=== PATIENT | female | born 1940 | race Caucasian/White ===

== ENCOUNTER 2018-08-14 08:57 | Day surgery (SDC) | payer OTHER ==
[~2018-08-14 08:57] MED LIST: CYCLOPENTOLATE HCL 1% OPHTH SOLN 2 ML BOTTLE OS SCH; KETOROLAC TROMETHAMINE 0.5% EYE DROP 1 DROP DROPS OS SCH; OFLOXACIN 0.3% OPHTHALMIC SOLUTION 5 ML BOTTLE OS SCH; PHENYLEPHRINE 2.5% OPHTH SOLN 15 ML BOTTLE OS SCH; TROPICAMIDE 1% OPHTH SOLN 15 ML BOTTLE OS SCH
[2018-08-14] MEDS ORDERED: POVIDONE-IODINE 5% OPHTHALMIC PREP 30 ML SOLUTION ONE (09:05)
[2018-08-14] MEDS ORDERED: TETRACAINE 0.5% OPHTH SOLN 2 ML BOTTLE ONE (09:05)
[2018-08-14] MEDS ORDERED: EPI-SHUGARCAINE (EPINEPHRINE 0.025% & LIDOCAINE-PF 0.75%) 4ML ONE (09:05)
[2018-08-14] MEDS ORDERED: ACETYLCHOLINE 1:100 INTRA-OCUL 20 MG/2 ML KIT ONE (09:06)
[2018-08-14] MEDS: TROPICAMIDE 1% OPHTH SOLN 15 ML BOTTLE ONE ×5 (09:50→10:10)
[2018-08-14] MEDS: PHENYLEPHRINE 2.5% OPHTH SOLN 15 ML BOTTLE ONE ×5 (09:50→10:10)
[2018-08-14] MEDS: CYCLOPENTOLATE HCL 1% OPHTH SOLN 2 ML BOTTLE ONE ×5 (09:50→10:10)
[2018-08-14] MEDS: KETOROLAC TROMETHAMINE 0.5% EYE DROP 1 DROP DROPS ONE ×5 (09:50→10:10)
[2018-08-14] MEDS: OFLOXACIN 0.3% OPHTHALMIC SOLUTION 5 ML BOTTLE ONE ×5 (09:50→10:10)
[2018-08-14 10:01] VITALS: BMI 13.6
[2018-08-14] MEDS ORDERED: MIDAZOLAM HCL 2 MG/2 ML SINGLE DOSE VIAL ONE (10:40)
[2018-08-14] MEDS ORDERED: ACETAMINOPHEN 325 MG TABLET (FP) PO PRN (11:32)
[2018-08-14 12:16] VITALS: BP 135/74; PULSE 74; TEMP 98
--- NOTE | 2018-08-14 14:01 | OP ---
DATE OF OPERATION: 08/14/2018 PREOPERATIVE DIAGNOSIS: Cataract, left eye. POSTOPERATIVE DIAGNOSIS: Cataract, left eye. PROCEDURE: Cataract extraction via phacoemulsification with insertion of posterior chamber lens implant, left eye. SURGEON: Sherman Land MD FACE MAN: La Bonner MD ANESTHESIA: Topical with sedation. ESTIMATED BLOOD LOSS: Less than 1 mL. COMPLICATIONS: None. SPECIMENS: None. DESCRIPTION OF PROCEDURE: The patient was identified in the holding area. After all the risks, benefits, and alternatives were explained to the patient, informed consent was obtained. The left eye was marked with a marking pen. The patient then entered the operating room on an eye stretcher. After a formal time-out was performed, topical tetracaine eye drops were instilled onto the left eye. The left eye was then prepped and draped in the usual sterile fashion. An eyelid speculum was placed beneath the eyelids of the left eye. An inferotemporal paracentesis incision was created using a 15-degree blade. Topical preservative-free epinephrine and preservative-free lidocaine were injected into the anterior chamber. Viscoelastic was then injected into the anterior chamber. A 2.4-mm keratome blade was then used to make a superotemporal incision. A 360-degree continuous curvilinear capsulorrhexis was then created using bent cystotome and Utrata forceps. Hydrodissection was performed using balanced saline solution on a cannula. Phacoemulsification was introduced to disassemble and remove the nucleus in its entirety. Irrigation/aspiration was then used to remove any remaining cortical material from the eye. The capsular bag was reformed using viscoelastic. An Vj model SN60WF with a power of 25.5 diopters, serial number [id number], was inspected and found to be defect-free and injected into the capsular bag. Irrigation/aspiration was then used to remove any remaining viscoelastic from the eye. The anterior chamber was reformed using balanced saline solution. Intracameral injection of Miochol was then administered, and the pupil came down and was round. All wounds were hydrated with balanced saline solution, noted to be watertight. There was a red reflex present. The anterior chamber was deep. The lens was perfectly centered in the capsular bag, and the eye had adequate pressure. Topical antibiotic eye drops and ointment were then administered to the left eye. The eyelid speculum was removed from the left eye. The left eye was shielded. The patient tolerated the procedure well and left the operating room in stable condition to follow up in the eye clinic tomorrow morning at 10:00. SHERMAN LAND M.D. PANKAJ/[id number]
== END 2018-08-14 12:20 | disposition home or self-care (01) ==
LOC: FASU 08:57
PROVIDERS: ATTEND Ophthalmology
PROC: 08RK3JZ Replacement of Left Lens with Synthetic Substitute, Percutaneous Approach (ICD-10-PCS; principal; 2018-08-14 10:52)
DX: H26.9 Unspecified cataract (principal)

== ENCOUNTER 2023-01-13 02:10 | Inpatient (IN) | payer OTHER ==
[2023-01-13 04:36] LABS: CALCIUM 8.6 mg/dL (8.5-10.1)
[2023-01-13 04:39] LABS: CREATININE 1.5 mg/dL (0.55-1.3)
[2023-01-13 04:41] LABS: BILIRUBIN,TOTAL 0.3 mg/dL (0.2-1)
[2023-01-13 05:40] LABS: INR 1.27 (0.83-1.09); PROTHROMBIN TIME (PATIENT) 14.7 SEC (9.7-13.0)
[2023-01-13 05:42] LABS: ACTIVATED PTT 30.7 SECONDS (25.2-36.5)
[2023-01-13 05:45] LABS: HEMATOCRIT 18.9 % (32.4-45.2); MCH 31.5 pg (25.7-33.7); MCHC 32.4 g/dl (32.0-36.0); MEAN CELL VOLUME 97.4 fl (80-96); MEAN PLT VOLUME 7.4 fl (7.5-11.1); PLATELET COUNT 318 10^3/uL (134-434); RBC 1.95 M/mm3 (3.60-5.2); RDW 20.6 % (11.6-15.6); WHITE BLOOD COUNT 25.1 K/mm3 (4.0-10.0)
[2023-01-13 05:54] LABS: HEMOGLOBIN 6.1 GM/dL (10.7-15.3)
[2023-01-13] MEDS ORDERED: ONDANSETRON 4 MG/2 ML VIAL IVPUSH ONE (06:50)
[2023-01-13] MEDS ORDERED: ONDANSETRON 4 MG/2 ML VIAL ONE (07:32)
[2023-01-13 07:38] LABS: ANISOCYTOSIS 2+; MACROCYTOSIS 0; OVALOCYTE 2+
[2023-01-13] MEDS ORDERED: SODIUM CHLORIDE 500 ML IV STA (09:26)
[2023-01-13] MEDS ORDERED: ALBUTEROL SO4 2.5/IPRATROPIUM 0.5 INH SOL 3 ML VIAL.NEB. NEB PRN (09:35)
[2023-01-13] MEDS ORDERED: ACETAMINOPHEN 650 MG/20.3 ML ORAL SOLUTION (CUPS) GT PRN (09:35)
[2023-01-13 09:38] LABS: POTASSIUM 3.9 mmol/L (3.5-5.1)
[2023-01-13 09:40] LABS: CALCIUM 9.2 mg/dL (8.5-10.1)
[2023-01-13 09:41] LABS: BLOOD UREA NITROGEN 61.4 mg/dL (7-18)
[2023-01-13 09:43] LABS: CREATININE 1.4 mg/dL (0.55-1.3)
[2023-01-13] MEDS ORDERED: COLLAGENASE CLOSTRIDIUM HIST. 30 GRAMS TUBE TP SCH (10:00)
[2023-01-13] MEDS ORDERED: POLYETHYLENE GLYCOL (HEALTHYLAX) 3350 17 GM PACKET PO SCH (10:00)
[2023-01-13] MEDS ORDERED: oxyCODONE HCL 5 MG TABLET PO PRN (10:29)
[2023-01-13] MEDS ORDERED: PIPERACILLIN/TAZOB 3.375 GM 3.375 GM in DEXTROSE 5%-WATER - 50 ML IVPB SCH (11:00)
[2023-01-13] MEDS: CYANOCOBALAMIN 1,000 MCG TABLET (FP) GT SCH (11:11)
[2023-01-13] MEDS: CHOLECALCIFEROL (VIT D3) 1,000 UNIT (25 MCG) TABLET GT SCH (11:11)
[2023-01-13] MEDS ORDERED: ACETAMINOPHEN 1000 MG/100 ML BAG IVPB PRN (11:48)
[2023-01-13] MEDS ORDERED: PANTOPRAZOLE SODIUM 40 MG VIAL ONE (11:59)
[2023-01-13] MEDS ORDERED: FERROUS SO4 300 MG/5 ML ORAL SOLN UNIT DOSE CUPS GT SCH (12:00)
[2023-01-13] MEDS: PANTOPRAZOLE SODIUM 40 MG VIAL IVPUSH SCH ×2 (12:01→21:41)
[2023-01-13] MEDS ORDERED: PIPERACILLIN/TAZOB 3.375 GM 3.375 GM/50 ML BAG IVPB ONE ×2 (12:05→17:09)
[2023-01-13 12:24] LABS: RETICULOCYTES 2.88 % (0.5-1.5)
[2023-01-13] MEDS: PIPERACILLIN/TAZOB 3.375 GM 3.375 GM in DEXTROSE 5%-WATER - 50 ML IVPB SCH (17:09)
[2023-01-13] MEDS: SENNOSIDES 8.8 MG/5 ML SYRUP GT SCH (21:41)
[2023-01-13] MEDS ORDERED: ZINC AMINO ACID CHELATE GT SCH (22:00)
[2023-01-13] MEDS ORDERED: SENNOSIDES 8.8 MG/5 ML SYRUP GT SCH (22:00)
[2023-01-13] MEDS ORDERED: MELATONIN 1 MG TABLET GT SCH (22:00)
[2023-01-13 23:31] LABS: HEMATOCRIT 32.7 % (32.4-45.2); HEMOGLOBIN 10.8 GM/dL (10.7-15.3); MCH 30.7 pg (25.7-33.7); MCHC 32.9 g/dl (32.0-36.0); MEAN CELL VOLUME 93.3 fl (80-96); MEAN PLT VOLUME 7.1 fl (7.5-11.1); PLATELET COUNT 319 10^3/uL (134-434); RDW 17.4 % (11.6-15.6); WHITE BLOOD COUNT 19.3 K/mm3 (4.0-10.0)
[2023-01-14] MEDS: PIPERACILLIN/TAZOB 3.375 GM 3.375 GM in DEXTROSE 5%-WATER - 50 ML IVPB SCH ×3 (01:06→18:09)
[2023-01-14 07:11] LABS: HEMATOCRIT 29.7 % (32.4-45.2); HEMOGLOBIN 10.1 GM/dL (10.7-15.3); MCH 31.8 pg (25.7-33.7); MCHC 34.1 g/dl (32.0-36.0); MEAN CELL VOLUME 93.2 fl (80-96); MEAN PLT VOLUME 7.6 fl (7.5-11.1); PLATELET COUNT 313 10^3/uL (134-434); RBC 3.19 M/mm3 (3.60-5.2); RDW 17.3 % (11.6-15.6); WHITE BLOOD COUNT 14.9 K/mm3 (4.0-10.0)
[2023-01-14 07:12] LABS: EPI CELLS 20 /uL (0-25.1); HYALINE CASTS 1 /uL (0-3.1); URINE APPEARANCE CLEAR; URINE BACTERIA 39 /uL (0-1359); URINE BILIRUBIN NEGATIVE (NEGATIVE); URINE COLOR YELLOW; URINE GLUCOSE (UA) NEGATIVE (NEGATIVE); URINE KETONE NEGATIVE (NEGATIVE); URINE LEUK ESTERASE TRACE (NEGATIVE); URINE NITRITE NEGATIVE (NEGATIVE); URINE PROTEIN 1+ (NEGATIVE); URINE RBC 28 /uL (0-23.9); URINE UROBILINOGEN 0.2 mg/dL (0.2-1.0); URINE WBC 8 /uL (0-25.8)
[2023-01-14 07:21] LABS: POTASSIUM 3.6 mmol/L (3.5-5.1)
[2023-01-14 07:23] LABS: CALCIUM 8.8 mg/dL (8.5-10.1)
[2023-01-14 07:24] LABS: ALBUMIN 2.2 g/dl (3.4-5.0); MAGNESIUM 2.5 mg/dL (1.8-2.4)
[2023-01-14 07:27] LABS: CREATININE 1.3 mg/dL (0.55-1.3); PHOSPHOROUS 3.6 mg/dL (2.5-4.9)
[2023-01-14 07:28] LABS: BILIRUBIN,TOTAL 0.6 mg/dL (0.2-1)
[2023-01-14 07:29] LABS: TOT PROT 6.3 g/dl (6.4-8.2)
[2023-01-14 09:09] LABS: ANISOCYTOSIS 2+; MACROCYTOSIS 0; OVALOCYTE 1+
[2023-01-14] MEDS: CYANOCOBALAMIN 1,000 MCG TABLET (FP) GT SCH (10:00)
[2023-01-14] MEDS: POLYETHYLENE GLYCOL (HEALTHYLAX) 3350 17 GM PACKET GT SCH ×2 (10:02→22:03)
[2023-01-14] MEDS: PANTOPRAZOLE SODIUM 40 MG VIAL IVPUSH SCH ×2 (10:02→22:03)
[2023-01-14] MEDS: CHOLECALCIFEROL (VIT D3) 1,000 UNIT (25 MCG) TABLET GT SCH (10:02)
[2023-01-14] MEDS: FERROUS SO4 300 MG/5 ML ORAL SOLN UNIT DOSE CUPS GT SCH (10:13)
[2023-01-14] MEDS: SENNOSIDES 8.8 MG/5 ML SYRUP GT SCH (22:03)
[2023-01-15] MEDS: PIPERACILLIN/TAZOB 3.375 GM 3.375 GM in DEXTROSE 5%-WATER - 50 ML IVPB SCH ×3 (03:00→18:38)
[2023-01-15 07:24] LABS: HEMATOCRIT 30.7 % (32.4-45.2); HEMOGLOBIN 10.2 GM/dL (10.7-15.3); MCH 31.1 pg (25.7-33.7); MCHC 33.1 g/dl (32.0-36.0); MEAN CELL VOLUME 93.9 fl (80-96); MEAN PLT VOLUME 7.3 fl (7.5-11.1); PLATELET COUNT 325 10^3/uL (134-434); RBC 3.27 M/mm3 (3.60-5.2); WHITE BLOOD COUNT 12.8 K/mm3 (4.0-10.0)
[2023-01-15 07:36] LABS: POTASSIUM 3.6 mmol/L (3.5-5.1)
[2023-01-15 07:42] LABS: CALCIUM 8.4 mg/dL (8.5-10.1)
[2023-01-15 07:43] LABS: ALBUMIN 2.1 g/dl (3.4-5.0); BLOOD UREA NITROGEN 51.5 mg/dL (7-18); MAGNESIUM 2.5 mg/dL (1.8-2.4)
[2023-01-15 07:46] LABS: CREATININE 1.3 mg/dL (0.55-1.3); PHOSPHOROUS 3.2 mg/dL (2.5-4.9)
[2023-01-15 07:47] LABS: BILIRUBIN,TOTAL 0.5 mg/dL (0.2-1); TOT PROT 6.1 g/dl (6.4-8.2)
[2023-01-15 09:24] LABS: ANISOCYTOSIS 2+; MACROCYTOSIS 0; OVALOCYTE 1+; TEAR DROP CELLS 1+
[2023-01-15] MEDS: CYANOCOBALAMIN 1,000 MCG TABLET (FP) GT SCH (10:29)
[2023-01-15] MEDS: PANTOPRAZOLE SODIUM 40 MG VIAL IVPUSH SCH ×2 (10:29→22:37)
[2023-01-15] MEDS: FERROUS SO4 300 MG/5 ML ORAL SOLN UNIT DOSE CUPS GT SCH (10:29)
[2023-01-15] MEDS: CHOLECALCIFEROL (VIT D3) 1,000 UNIT (25 MCG) TABLET GT SCH (10:29)
[2023-01-15] MEDS: POLYETHYLENE GLYCOL (HEALTHYLAX) 3350 17 GM PACKET GT SCH ×2 (10:29→22:37)
[2023-01-15 11:21] VITALS: BMI 14.3
[2023-01-15] MEDS ORDERED: TUBE FEED DECLOGGING SOLUTION 12,000 UNITS GT ONE (12:45)
[2023-01-15] MEDS: SENNOSIDES 8.8 MG/5 ML SYRUP GT SCH (22:37)
[2023-01-16] MEDS: PIPERACILLIN/TAZOB 3.375 GM 3.375 GM in DEXTROSE 5%-WATER - 50 ML IVPB SCH ×3 (01:37→17:28)
[2023-01-16 08:11] LABS: BASO % 0.5 % (0-2.0); EOS % 3.9 % (0-4.5); HEMATOCRIT 33.1 % (32.4-45.2); HEMOGLOBIN 11.2 GM/dL (10.7-15.3); LYMPH % 3.5 % (8-40); MCH 31.9 pg (25.7-33.7); MCHC 33.8 g/dl (32.0-36.0); MEAN CELL VOLUME 94.5 fl (80-96); MEAN PLT VOLUME 7.6 fl (7.5-11.1); MONO % 3.5 % (3.8-10.2); NEUT % 88.6 % (42.8-82.8); PLATELET COUNT 357 10^3/uL (134-434); RDW 17.6 % (11.6-15.6); WHITE BLOOD COUNT 9.4 K/mm3 (4.0-10.0)
[2023-01-16 08:24] LABS: POTASSIUM 4.5 mmol/L (3.5-5.1)
[2023-01-16 08:28] LABS: ALBUMIN 2.3 g/dl (3.4-5.0); CALCIUM 8.2 mg/dL (8.5-10.1)
[2023-01-16 08:29] LABS: BLOOD UREA NITROGEN 44.5 mg/dL (7-18); MAGNESIUM 2.5 mg/dL (1.8-2.4)
[2023-01-16 08:31] LABS: CREATININE 1.2 mg/dL (0.55-1.3)
[2023-01-16 08:33] LABS: BILIRUBIN,TOTAL 0.6 mg/dL (0.2-1); TOT PROT 6.8 g/dl (6.4-8.2)
[2023-01-16] MEDS: POLYETHYLENE GLYCOL (HEALTHYLAX) 3350 17 GM PACKET GT SCH ×2 (10:59→22:39)
[2023-01-16] MEDS: CYANOCOBALAMIN 1,000 MCG TABLET (FP) GT SCH (10:59)
[2023-01-16] MEDS: CHOLECALCIFEROL (VIT D3) 1,000 UNIT (25 MCG) TABLET GT SCH (11:01)
[2023-01-16] MEDS: PANTOPRAZOLE SODIUM 40 MG VIAL IVPUSH SCH ×2 (11:01→22:39)
[2023-01-16] MEDS: FERROUS SO4 300 MG/5 ML ORAL SOLN UNIT DOSE CUPS GT SCH (11:01)
[2023-01-16] MEDS: COLLAGENASE CLOSTRIDIUM HIST. 30 GRAMS TUBE TP SCH (14:41)
[2023-01-16] MEDS: SENNOSIDES 8.8 MG/5 ML SYRUP GT SCH (22:39)
[2023-01-17] MEDS: PIPERACILLIN/TAZOB 3.375 GM 3.375 GM in DEXTROSE 5%-WATER - 50 ML IVPB SCH ×3 (02:50→17:29)
[2023-01-17 06:51] LABS: BASO % 0.3 % (0-2.0); EOS % 2.3 % (0-4.5); HEMATOCRIT 31.4 % (32.4-45.2); HEMOGLOBIN 10.6 GM/dL (10.7-15.3); LYMPH % 3.7 % (8-40); MCH 31.9 pg (25.7-33.7); MCHC 33.7 g/dl (32.0-36.0); MEAN CELL VOLUME 94.8 fl (80-96); MEAN PLT VOLUME 7.3 fl (7.5-11.1); MONO % 4.4 % (3.8-10.2); NEUT % 89.3 % (42.8-82.8); PLATELET COUNT 297 10^3/uL (134-434); RBC 3.31 M/mm3 (3.60-5.2); WHITE BLOOD COUNT 9.8 K/mm3 (4.0-10.0)
[2023-01-17 07:08] LABS: POTASSIUM 4.3 mmol/L (3.5-5.1)
[2023-01-17 07:12] LABS: ALBUMIN 2.2 g/dl (3.4-5.0); MAGNESIUM 2.4 mg/dL (1.8-2.4)
[2023-01-17 07:14] LABS: CREATININE 1.2 mg/dL (0.55-1.3); PHOSPHOROUS 2.7 mg/dL (2.5-4.9)
[2023-01-17 07:16] LABS: BILIRUBIN,TOTAL 0.6 mg/dL (0.2-1); TOT PROT 6.4 g/dl (6.4-8.2)
[2023-01-17] MEDS: POLYETHYLENE GLYCOL (HEALTHYLAX) 3350 17 GM PACKET GT SCH ×2 (09:26→22:01)
[2023-01-17] MEDS: PANTOPRAZOLE SODIUM 40 MG VIAL IVPUSH SCH ×2 (09:28→22:01)
[2023-01-17] MEDS: CHOLECALCIFEROL (VIT D3) 1,000 UNIT (25 MCG) TABLET GT SCH (09:29)
[2023-01-17] MEDS: COLLAGENASE CLOSTRIDIUM HIST. 30 GRAMS TUBE TP SCH (09:29)
[2023-01-17] MEDS: CYANOCOBALAMIN 1,000 MCG TABLET (FP) GT SCH (09:29)
[2023-01-17] MEDS: amLODIPine BESYLATE 10 MG TABLET (FP) GT SCH (09:29)
[2023-01-17] MEDS: FERROUS SO4 300 MG/5 ML ORAL SOLN UNIT DOSE CUPS GT SCH (13:09)
[2023-01-17] MEDS: SENNOSIDES 8.8 MG/5 ML SYRUP GT SCH (22:01)
[2023-01-18] MEDS: PIPERACILLIN/TAZOB 3.375 GM 3.375 GM in DEXTROSE 5%-WATER - 50 ML IVPB SCH (01:46)
[2023-01-18 06:50] LABS: BASO % 0.5 % (0-2.0); EOS % 3.5 % (0-4.5); HEMATOCRIT 28.3 % (32.4-45.2); HEMOGLOBIN 9.4 GM/dL (10.7-15.3); LYMPH % 5.6 % (8-40); MCH 31.6 pg (25.7-33.7); MCHC 33.3 g/dl (32.0-36.0); MEAN CELL VOLUME 94.9 fl (80-96); MEAN PLT VOLUME 7.9 fl (7.5-11.1); MONO % 5.1 % (3.8-10.2); NEUT % 85.3 % (42.8-82.8); PLATELET COUNT 256 10^3/uL (134-434); RBC 2.98 M/mm3 (3.60-5.2); RDW 16.9 % (11.6-15.6); WHITE BLOOD COUNT 8.1 K/mm3 (4.0-10.0)
[2023-01-18 07:02] LABS: POTASSIUM 4.1 mmol/L (3.5-5.1)
[2023-01-18 07:04] LABS: BLOOD UREA NITROGEN 36.5 mg/dL (7-18); CALCIUM 8.3 mg/dL (8.5-10.1); MAGNESIUM 2.4 mg/dL (1.8-2.4)
[2023-01-18 07:07] LABS: CREATININE 1.2 mg/dL (0.55-1.3); PHOSPHOROUS 3.2 mg/dL (2.5-4.9)
[2023-01-18 07:09] LABS: BILIRUBIN,TOTAL 0.8 mg/dL (0.2-1); TOT PROT 5.9 g/dl (6.4-8.2)
[2023-01-18] MEDS: CHOLECALCIFEROL (VIT D3) 1,000 UNIT (25 MCG) TABLET GT SCH (10:09)
[2023-01-18] MEDS: POLYETHYLENE GLYCOL (HEALTHYLAX) 3350 17 GM PACKET GT SCH ×2 (10:09→22:19)
[2023-01-18] MEDS: PANTOPRAZOLE SODIUM 40 MG VIAL IVPUSH SCH ×2 (10:09→22:21)
[2023-01-18] MEDS: CYANOCOBALAMIN 1,000 MCG TABLET (FP) GT SCH (10:09)
[2023-01-18] MEDS: amLODIPine BESYLATE 10 MG TABLET (FP) GT SCH (10:09)
[2023-01-18] MEDS: FERROUS SO4 300 MG/5 ML ORAL SOLN UNIT DOSE CUPS GT SCH (10:10)
[2023-01-18] MEDS: COLLAGENASE CLOSTRIDIUM HIST. 30 GRAMS TUBE TP SCH (10:28)
[2023-01-18] MEDS: SENNOSIDES 8.8 MG/5 ML SYRUP GT SCH (22:19)
[2023-01-19 08:17] VITALS: BP 145/63; PULSE 79; RESP 20; TEMP 97.4
[2023-01-19] MEDS: PANTOPRAZOLE SODIUM 40 MG VIAL IVPUSH SCH (10:01)
[2023-01-19] MEDS: CYANOCOBALAMIN 1,000 MCG TABLET (FP) GT SCH (10:01)
[2023-01-19] MEDS: CHOLECALCIFEROL (VIT D3) 1,000 UNIT (25 MCG) TABLET GT SCH (10:02)
[2023-01-19] MEDS: amLODIPine BESYLATE 10 MG TABLET (FP) GT SCH (10:02)
[2023-01-19] MEDS: FERROUS SO4 300 MG/5 ML ORAL SOLN UNIT DOSE CUPS GT SCH (10:02)
[2023-01-19] MEDS: COLLAGENASE CLOSTRIDIUM HIST. 30 GRAMS TUBE TP SCH (10:07)
[2023-01-19] MEDS: POLYETHYLENE GLYCOL (HEALTHYLAX) 3350 17 GM PACKET GT SCH (10:07)
== END 2023-01-19 15:07 | DRG 871 ==
LOC: JER 02:10 → JERBED 05:46 → J4W 21:02
PROVIDERS: ADMIT Internal Medicine; ATTEND Internal Medicine
PROC: 30233N1 Transfusion of Nonautologous Red Blood Cells into Peripheral Vein, Percutaneous Approach (ICD-10-PCS; principal; 2023-01-13)
DX: A41.89 Other specified sepsis (principal); J18.9 Pneumonia, unspecified organism; K92.2 Gastrointestinal hemorrhage, unspecified; N17.9 Acute kidney failure, unspecified; D62 Acute posthemorrhagic anemia; J90 Pleural effusion, not elsewhere classified; E44.0 Moderate protein-calorie malnutrition; Z68.1 Body mass index [BMI] 19.9 or less, adult; J98.11 Atelectasis; J44.9 Chronic obstructive pulmonary disease, unspecified; K59.00 Constipation, unspecified; L89.152 Pressure ulcer of sacral region, stage 2; I10 Essential (primary) hypertension; D72.829 Elevated white blood cell count, unspecified; M10.9 Gout, unspecified; D50.9 Iron deficiency anemia, unspecified; E21.3 Hyperparathyroidism, unspecified; Z93.0 Tracheostomy status; Z85.3 Personal history of malignant neoplasm of breast; Z85.21 Personal history of malignant neoplasm of larynx
CPT/HCPCS: 36415; 36430; 71045-TC-FY; 74176-TC; 80048; 80053; 81003; 82272; 82570; 82607; 82728; 82746; 83540; 83550; 83605; 83615; 83735; 83935; 84100; 84300; 84484; 84540; 85025; 85027; 85045; 85610; 85730; 86850; 86900; 86901; 86922; 87040; 87086; 87186; 87635; 87899; 93005; 93010; 99285-25; E0186; P9058